=== PATIENT | female | born 1970 | race Caucasian/White ===

== ENCOUNTER 2017-04-17 11:54 | Emergency (ER) | payer BC ==
[2017-04-17] MEDS ORDERED: KETOROLAC 30 MG/ML VIAL IVP ONE (11:59)
[2017-04-17] MEDS ORDERED: 0.9 % SODIUM CHLORIDE 1,000 ML BAG IV ONE (11:59)
[2017-04-17] MEDS ORDERED: PROMETHAZINE HCL 25 MG/ML VIAL IM ONE (11:59)
--- NOTE | 2017-04-17 12:04 | Emergency Department Record ---
History of Present Illness - General Chief Complaint: Abdominal Pain Stated Complaint: ABD PAIN Time Seen by Provider: 04/17/17 11:59 Source: Patient - History of Present Illness Initial Comments: Sudden onset today while having a normal BM of RLQ severe abdominal pain. Patient is inconsolable upon arrival, colicky pain. States she has a history of kidney stones, and has had 3 weeks of mild right sided pain which no one has diagnosed. Just moved here from [place]. 10- moicrograms of fentanyl, 4 zofran, and 4 morphine given en route. SP hysterectomy. MD Complaint: Abdominal pain, Flank pain - Related Data Previous Rx's Medication Instructions Recorded Hydrocodone/Acetaminophen [Brimson 1 each PO TID #14 tablet 04/17/17 5-325 Tablet] Tamsulosin HCl [Flomax] 0.4 mg PO DAILY #7 cap.er.24h 04/17/17 Allergies Allergy/AdvReac Type Severity Reaction Status Date / Time No Known Drug Allergies Allergy Verified 04/17/17 12:09 Review of Systems Reviewed: No additional complaints except as noted below Constitutional: Reports: As per HPI. Denies: Chills, Fever, Malaise, Night sweats, Weakness, Weight change Eyes: Reports: As per HPI. Denies: Eye discharge, Eye pain, Photophobia, Vision change ENT: Reports: As per HPI. Denies: Congestion, Dental pain, Ear pain, Epistaxis , Hearing loss, Throat pain Respiratory: Reports: As per HPI. Denies: Cough, Dyspnea, Hemoptysis, Stridor, Wheezes Cardiovascular: Reports: As per HPI. Denies: Arrhythmia, Chest pain, Dyspnea on exertion, Edema, Murmurs, Orthopnea, Palpitations, Paroxysmal nocturnal dyspnea, Rheumatic Fever, Syncope Endocrine: Reports: As per HPI. Denies: Fatigue, Heat or cold intolerance, Polydipsia, Polyuria Gastrointestinal: Reports: As per HPI. Denies: Abdominal pain, Constipation, Diarrhea, Hematemesis, Hematochezia, Melena, Nausea, Vomiting Genitourinary: Reports: As per HPI. Denies: Abnormal menses, Discharge, Dyspareunia, Dysuria, Frequency, Hematuria, Incontinence, Retention, Urgency Musculoskeletal: Reports: As per HPI. Denies: Arthralgia, Back pain, Gout, Joint swelling, Myalgia, Neck pain Skin: Reports: As per HPI. Denies: Bruising, Change in color, Change in hair/ nails, Lesions, Pruritus, Rash Neurological: Reports: As per HPI. Denies: Abnormal gait, Confusion, Headache, Numbness, Paresthesias, Seizure, Tingling, Tremors, Vertigo, Weakness Psychiatric: Reports: As per HPI. Denies: Anxiety, Auditory hallucinations, Depression, Homicidal thoughts, Suicidal thoughts, Visual hallucinations Hematological/Lymphatic: Reports: As per HPI. Denies: Anemia, Blood Clots, Easy bleeding, Easy bruising, Swollen glands Physical Exam - General General Appearance: Alert, Oriented x3, Cooperative, Severe distress - Head Head exam: Normal inspection - Eye Eye exam: Normal appearance, PERRL, EOMI Pupils: Normal accommodation - ENT ENT exam: Normal exam, Mucous membranes moist, Normal external ear exam, Normal orophraynx, TM's normal bilaterally Ear exam: Normal external inspection. negative: External canal tenderness Nasal Exam: Normal inspection. negative: Discharge, Sinus tenderness Mouth exam: Normal external inspection, Tongue normal Teeth exam: Normal inspection. negative: Dental caries Throat exam: Normal inspection. negative: Tonsillar erythema, Tonsillar exudate - Neck Neck exam: Normal inspection, Full ROM. negative: Tenderness - Respiratory Respiratory exam: Normal lung sounds bilaterally. negative: Respiratory distress - Cardiovascular Cardiovascular Exam: Regular rate, Normal rhythm, Normal heart sounds - GI/Abdominal GI/Abdominal exam: Soft, Normal bowel sounds, Tenderness (RLQ tender to palpation radiating in to right flank tenderness) - Rectal Rectal exam: Deferred - exam: Deferred - Extremities Extremities exam: Normal inspection, Full ROM, Normal capillary refill. negative: Tenderness - Back Back exam: Reports: Normal inspection, CVA tenderness (R), Full ROM. Denies: CVA tenderness (L), Muscle spasm, Rash noted, Tenderness - Neurological Neurological exam: Alert, CN II-XII intact, Normal gait, Oriented X3, Reflexes normal - Psychiatric Psychiatric exam: Normal affect, Normal mood - Skin Skin exam: Dry, Intact, Normal color, Warm Course - Reevaluation(s) Reevaluation #1: Patient is much more comfortable but not painfree. results discussed with patient, all questions answered, patient understands. 04/17/17 13:35 04/17/17 13:38 Reevaluation #2: Patient is comfortable and ready for DC home. Will follow with Dr Reeder 04/17/17 14:28 Medical Decision Making - Data Complexity MDM Data: Labs Ordered and/or Reviewed, X-Ray Ordered and/or Reviewed ( Noncontrast Abd/Pelvis CT: 2 mm right UVJ stone with mild-moderate hydronephrosis. Per rad.) - Lab Data Result diagrams: 04/17/17 12:26 04/17/17 12:26 Disposition Clinical Impression: Kidney stone on right side Disposition: Home, Self-Care Condition: (1) Good Instructions: Kidney Stones (ED) Additional Instructions: Flomax as directed. Brimson as directed IF NEEDED for pain. Dr[facility] a directed. Return if your pain is not controlled at home. Prescriptions: Hydrocodone/Acetaminophen [Brimson 5-325 Tablet] 1 each PO TID #14 tablet Tamsulosin HCl [Flomax] 0.4 mg PO DAILY #7 cap.er.24h Referrals: KANDICE REEDER M.D. [MEDICAL DOCTOR] - Forms: Patient Portal Access Quality - Quality Measures Quality Measures: N/A - Blood Pressure Screening Does Patient Have Any of the Following: No Blood Pressure Classification: Hypertensive Reading Systolic Measurement: 156 Diastolic Measurement: 110 Screening for High Blood Pressure: < Pre-Hypertensive BP, F/U Documented > [ G8950] Pre-Hypertensive Follow-up Interventions: Follow-up with rescreen every year.
[2017-04-17 12:47] LABS: BASO % 0.2 % (0-6); EOS % 0.8 % (0-6); GRAN % 72.2 % (47-80); HEMATOCRIT 43.4 % (35.0-47.0); HEMOGLOBIN 14.3 gm/dl (11.6-16.0); LYMPH % 20.2 % (16-45); MEAN CELL VOLUME 92.3 fl (81-97); MEAN CORPUSCULAR HEMOGLOBIN 30.4 pg (27-33); MEAN CORPUSCULAR HGB CONC 32.9 g/dl (32-36); MEAN PLATELET VOLUME 10.3 fl (7.4-10.4); MONO % 6.6 % (0-9); PLATELET COUNT 195 K/uL (130-400); RED CELL DISTRIBUTION WIDTH 12.8 % (11.5-14.5); WHITE BLOOD COUNT W/O DIFF 8.9 K/uL (4.2-12.2)
[2017-04-17 13:08] LABS: ALBUMIN 4.1 g/dL (4.0-5.0); ALKALINE PHOSPHATASE 80 U/L (35-104); ALT/SGPT 10 U/L (<33); AST/SGOT 12 U/L (10.0-35.0); BLOOD UREA NITROGEN 8 mg/dL (6-20); CREATININE 0.7 mg/dL (0.5-0.9); EST GLOMERULAR FILTRATION RATE > 60 mL/min; GLUCOSE,RANDOM 95 mg/dL (74-109); LIPASE 28 U/L (13-60); TOTAL PROTEIN 6.5 g/dL (6.6-8.7)
[2017-04-17 13:11] LABS: BILIRUBIN,DIRECT < 0.2 mg/dL (0-0.3)
[2017-04-17 13:17] LABS: URINE APPEARANCE CLEAR; URINE BILIRUBIN NEGATIVE (NEGATIVE); URINE BLOOD LARGE (NEGATIVE); URINE COLOR YELLOW; URINE GLUCOSE (UA) NEGATIVE (NEGATIVE); URINE KETONE NEGATIVE (NEGATIVE); URINE LEUKOCYTE ESTERASE NEGATIVE (NEGATIVE); URINE NITRITE NEGATIVE (NEGATIVE); URINE PROTEIN NEGATIVE (NEGATIVE); URINE UROBILINOGEN 0.2 E.U./dL (0.20 - 1.00)
[2017-04-17 13:34] LABS: URINE BACTERIA FEW; URINE EPITHELIAL CELLS 0 - 2 (FEW); URINE WBC 0 - 2 (0-2/hpf)
[2017-04-17] MEDS ORDERED: TAMSULOSIN HCL 0.4 MG CAP.ER.24H PO ONE (13:37)
--- NOTE | 2017-04-18 08:35 | CT SCAN REPORT ---
EXAM: CT OF THE ABDOMEN AND PELVIS HISTORY: FLANK PAIN. TECHNIQUE: CT of the abdomen and pelvis was performed without oral or IV contrast. This limits evaluation of bowel and solid visceral organs. Comparison: None. FINDINGS: Limited evaluation of the lung bases demonstrates a 4 mm nodule in the right middle lobe. This could be followed nonemergently and is likely post inflammatory in nature. Minor scarring in the lung bases bilaterally. Limited evaluation of the liver, spleen, adrenal glands, and pancreas is unremarkable. The gallbladder is present. Nonobstructing 1-2 mm left renal calculus. Mild to moderate right sided hydronephrosis and hydroureter, secondary to a 2 mm right UVJ calculus. No free air or free fluid. Normal appendix. No gross evidence for bowel obstruction. IMPRESSION: 1. MILD TO MODERATE RIGHT SIDED HYDRONEPHROSIS AND HYDROURETER SECONDARY TO A 2 MM RIGHT UVJ CALCULUS. 2. NONOBSTRUCTING LEFT RENAL CALCULUS. 3. SUBCENTIMETER NODULE OF THE RIGHT MIDDLE LOBE COULD BE FOLLOWED NONEMERGENTLY WITH CT CHEST. JOB NUMBER: [id number] MTDD
== END 2017-04-17 14:36 | disposition home or self-care (01) ==
LOC: ER 11:54
DX: N13.2 Hydronephrosis with renal and ureteral calculous obstruction (principal); Z87.442 Personal history of urinary calculi
CPT/HCPCS: 99284 ×2; 96374; 96372; 83690; 85025; 80076; 80048; 81001; 74176; J1885; J2550; J7030

== ENCOUNTER 2017-04-18 12:35 | Emergency (ER) | payer BC ==
[2017-04-18] MEDS ORDERED: ONDANSETRON HCL IV 4 MG/2 ML VIAL IVP ONE (13:34)
[2017-04-18] MEDS ORDERED: KETOROLAC 30 MG/ML VIAL IVP ONE (13:34)
[2017-04-18] MEDS ORDERED: 0.9 % SODIUM CHLORIDE 1,000 ML BAG IV ONE (13:36)
[2017-04-18 13:40] LABS: URINE APPEARANCE CLEAR; URINE BILIRUBIN NEGATIVE (NEGATIVE); URINE BLOOD SMALL (NEGATIVE); URINE COLOR YELLOW; URINE GLUCOSE (UA) NEGATIVE (NEGATIVE); URINE KETONE NEGATIVE (NEGATIVE); URINE LEUKOCYTE ESTERASE NEGATIVE (NEGATIVE); URINE NITRITE NEGATIVE (NEGATIVE); URINE PROTEIN NEGATIVE (NEGATIVE); URINE UROBILINOGEN 0.2 E.U./dL (0.20 - 1.00)
[2017-04-18 13:46] LABS: URINE EPITHELIAL CELLS RARE (FEW); URINE WBC NONE SEEN (0-2/hpf)
--- NOTE | 2017-04-18 14:02 | Emergency Department Record ---
History of Present Illness - General Chief complaint: Flank Pain Stated complaint: KIDNEY STONE PAIN Time Seen by Provider: 04/18/17 13:26 Source: Patient, Old records reviewed Mode of Arrival: Ambulatory Limitations: No limitations - History of Present Illness Initial comments: pt was seen yesterday for kidney stone. she states the norco is making her sick and she is in severe pain. her stone is 2mm and was at the uvj yesterday. she is scheduled to see urologist MD Complaint: Other Onset/Timin -: Hour(s) Location: RLQ Radiation: R flank Severity: Severe Severity scale (1-10): 10 Quality: Sharp Consistency: Constant Improves with: None Worsens with: Bathing Associated Symptoms: Nausea/vomiting - Related Data Previous Rx's Medication Instructions Recorded Hydrocodone/Acetaminophen [Grant 1 each PO TID #14 tablet 04/17/17 5-325 Tablet] Tamsulosin HCl [Flomax] 0.4 mg PO DAILY #7 cap.er.24h 04/17/17 Ondansetron [Zofran Odt] 4 mg PO Q8H #14 tab.rapdis 04/18/17 Tamsulosin HCl [Flomax] 0.4 mg PO DAILY #7 cap.er.24h 04/18/17 Allergies Allergy/AdvReac Type Severity Reaction Status Date / Time No Known Drug Allergies Allergy Verified 04/18/17 12:48 Travel Screening - Travel/Exposure Within Last 30 Days Have you traveled within the last 30 days?: No - Travel/Exposure Within Last Year Have you traveled outside the [place] in the last year?: No - Additonal Travel Details Have you been exposed to anyone with a communicable illness?: No Review of Systems Reviewed: No additional complaints except as noted below Constitutional: Reports: As per HPI. Denies: Chills, Fever, Malaise, Night sweats, Weakness, Weight change Eyes: Reports: As per HPI. Denies: Eye discharge, Eye pain, Photophobia, Vision change ENT: Reports: As per HPI. Denies: Congestion, Dental pain, Ear pain, Epistaxis , Hearing loss, Throat pain Respiratory: Reports: As per HPI. Denies: Cough, Dyspnea, Hemoptysis, Stridor, Wheezes Cardiovascular: Reports: As per HPI. Denies: Arrhythmia, Chest pain, Dyspnea on exertion, Edema, Murmurs, Orthopnea, Palpitations, Paroxysmal nocturnal dyspnea, Rheumatic Fever, Syncope Endocrine: Reports: As per HPI. Denies: Fatigue, Heat or cold intolerance, Polydipsia, Polyuria Gastrointestinal: Reports: As per HPI. Denies: Abdominal pain, Constipation, Diarrhea, Hematemesis, Hematochezia, Melena, Nausea, Vomiting Genitourinary: Reports: As per HPI. Denies: Abnormal menses, Discharge, Dyspareunia, Dysuria, Frequency, Hematuria, Incontinence, Retention, Urgency Musculoskeletal: Reports: As per HPI. Denies: Arthralgia, Back pain, Gout, Joint swelling, Myalgia, Neck pain Skin: Reports: As per HPI. Denies: Bruising, Change in color, Change in hair/ nails, Lesions, Pruritus, Rash Neurological: Reports: As per HPI. Denies: Abnormal gait, Confusion, Headache, Numbness, Paresthesias, Seizure, Tingling, Tremors, Vertigo, Weakness Psychiatric: Reports: As per HPI. Denies: Anxiety, Auditory hallucinations, Depression, Homicidal thoughts, Suicidal thoughts, Visual hallucinations Hematological/Lymphatic: Reports: As per HPI. Denies: Anemia, Blood Clots, Easy bleeding, Easy bruising, Swollen glands Past Medical History - SOCIAL HISTORY Smoking Status: Current every day smoker Alcohol Use: None Drug Use: None - RESPIRATORY Hx Respiratory Disorders: No - CARDIOVASCULAR Hx Cardio Disorders: Yes Hx Hypertension: Yes - NEURO Hx Neuro Disorders: Yes Hx Dizziness: Yes - GI Hx GI Disorders: No - Hx Genitourinary Disorders: Yes Hx Kidney Stones: Yes - ENDOCRINE Hx Endocrine Disorders: No - MUSCULOSKELETAL Hx Musculoskeletal Disorders: No - PSYCH Hx Psych Problems: Yes Hx Anxiety: Yes Hx Depression: Yes - HEMATOLOGY/ONCOLOGY Hx Hematology/Oncology Disorders: No Family Medical History Any Significant Family History?: Yes Hx Cancer: Mother *Cancer Comment: Breast Physical Exam - General General Appearance: Alert, Oriented x3, Cooperative, Mild distress - Head Head exam: Normal inspection - Eye Eye exam: Normal appearance, PERRL, EOMI Pupils: Normal accommodation - ENT ENT exam: Normal exam, Mucous membranes moist, Normal external ear exam, Normal orophraynx, TM's normal bilaterally Ear exam: Normal external inspection. negative: External canal tenderness Nasal Exam: Normal inspection. negative: Discharge, Sinus tenderness Mouth exam: Normal external inspection, Tongue normal Teeth exam: Normal inspection. negative: Dental caries Throat exam: Normal inspection. negative: Tonsillar erythema, Tonsillar exudate - Neck Neck exam: Normal inspection, Full ROM. negative: Tenderness - Respiratory Respiratory exam: Normal lung sounds bilaterally. negative: Respiratory distress - Cardiovascular Cardiovascular Exam: Regular rate, Normal rhythm, Normal heart sounds - GI/Abdominal GI/Abdominal exam: Soft, Normal bowel sounds. negative: Tenderness - Rectal Rectal exam: Deferred - exam: Deferred - Extremities Extremities exam: Normal inspection, Full ROM, Normal capillary refill. negative: Tenderness - Back Back exam: Reports: Normal inspection, Full ROM. Denies: Muscle spasm, Rash noted, Tenderness - Neurological Neurological exam: Alert, CN II-XII intact, Normal gait, Oriented X3 - Psychiatric Psychiatric exam: Normal affect, Normal mood - Skin Skin exam: Dry, Intact, Normal color, Warm Course Vital Signs 04/18/17 12:49 Temperature 98.7 F Pulse Rate 88 Respiratory 20 Rate Blood Pressure 164/90 Pulse Ox 100 Medical Decision Making - Lab Data Lab Results 04/18/17 Range/Units 13:30 Urine Color Yellow Urine Appearance Clear Urine pH 6.0 (5.0-8.0) Ur Specific [place] <= 1.005 (1.002-1.030) Urine Protein Negative (NEGATIVE) Urine Glucose (UA) Negative (NEGATIVE) Urine Ketones Negative (NEGATIVE) Urine Blood Small H (NEGATIVE) Urine Nitrite Negative (NEGATIVE) Urine Bilirubin Negative (NEGATIVE) Urine Urobilinogen 0.2 (0.20 - 1.00) E.U./dL Ur Leukocyte Esterase Negative (NEGATIVE) Urine RBC 3 - 6 (NONE SEEN) Urine WBC None seen (0-2/hpf) Ur Epithelial Cells Rare (FEW) Disposition Disposition: Discharge Clinical Impression: Kidney stone on right side Hydronephrosis Qualifiers: Hydronephrosis type: with ureteral calculous obstruction Qualified Code(s): N13.2 - Hydronephrosis with renal and ureteral calculous obstruction Disposition: Home Health Service Condition: (1) Good Instructions: Kidney Stones (ED), How to Strain Your Urine (ED) Additional Instructions: follow up with dr hearn. push fluids. Prescriptions: Ondansetron [Zofran Odt] 4 mg PO Q8H #14 tab.rapdis Tamsulosin HCl [Flomax] 0.4 mg PO DAILY #7 cap.er.24h Quality - Quality Measures Quality Measures: N/A - Blood Pressure Screening Does Patient Have Any of the Following: No Blood Pressure Classification: Hypertensive Reading Systolic Measurement: 164 Diastolic Measurement: 90 Screening for High Blood Pressure: < First Hypertensive BP, F/U Documented > [ G8950] First Hypertensive Follow-up Interventions: Follow-up with rescreen GT 1 day and LT 4 weeks.
== END 2017-04-18 14:59 | disposition home health service (06) ==
LOC: ER 12:35
DX: N13.2 Hydronephrosis with renal and ureteral calculous obstruction (principal); R11.2 Nausea with vomiting, unspecified; Z87.442 Personal history of urinary calculi
CPT/HCPCS: 81001; 96361; 96374; 96375; 99284; J1885; J2405; J7030

== ENCOUNTER 2017-06-16 12:05 | Emergency (ER) | payer BC ==
--- NOTE | 2017-06-16 12:31 | Emergency Department Record ---
History of Present Illness - General Chief Complaint: Dizziness Stated Complaint: DIZZINESS Time Seen by Provider: 06/16/17 12:27 Source: Patient Mode of Arrival: Ambulatory Limitations: No limitations - History of Present Illness Initial Comments: The patient is here due to feeling intermittent dizziness for 3 days. She states the symptoms come and go and lasts seconds to minutes. There is no BRUNNER, visual changes, but she does feel mildly weak at times. Additionally she has had some back and pelvic cramping and is concerned her kidney stone has returned. She did have a R ureter stone 2 months ago but was told they had passed. Additionally she has had retrosternal sharp CP that lasts seconds a few times yesterday but none today. There has been no CANDIE, SOB, sweating, or nausea. She also denies any CP with exertion. The patient admits to being very anxious and states her told her recently that he has genital herpes and she is concerned she has that also but denies any vaginal rash or lesions. MD Complaint: Dizziness Onset/Timin -: Days(s) Timing: Unsure Description: Lightheadedness, Nausea History of Same: No History of Trauma: No Improves With: Nothing Worsens With: Nothing Associated Symptoms: Denies other symptoms - Allie Coma Scale Eye Response: (4) Open spontaneously Motor Response: (5) Localizes to pain Verbal Response: (5) Oriented [place] Total: 14 - Related Data Home Medications Medication Instructions Recorded Confirmed Last Taken Tamsulosin HCl [Flomax] 0.4 mg PO DAILY 06/16/17 06/16/17 06/14/17 Previous Rx's Medication Instructions Recorded Meclizine HCl [Antivert] 25 mg PO Q8H #20 tablet 06/16/17 Allergies Allergy/AdvReac Type Severity Reaction Status Date / Time acetaminophen [From Vicodin] AdvReac NAUSEA Verified 06/16/17 12:21 codeine AdvReac HYPERSENSIT Verified 06/16/17 12:21 IVITY hydrocodone [From Vicodin] AdvReac NAUSEA Verified 06/16/17 12:21 Travel Screening - Travel/Exposure Within Last 30 Days Have you traveled within the last 30 days?: No - Travel/Exposure Within Last Year Have you traveled outside the [place] in the last year?: No - Additonal Travel Details Have you been exposed to anyone with a communicable illness?: No Review of Systems Constitutional: Denies: Chills, Fever Eyes: Denies: Eye discharge ENT: Denies: Congestion Respiratory: Denies: Cough, Dyspnea Cardiovascular: Denies: Arrhythmia, Dyspnea on exertion Endocrine: Reports: Fatigue Gastrointestinal: Denies: Diarrhea, Vomiting Genitourinary: Denies: Dysuria Musculoskeletal: Denies: Arthralgia Past Medical History - SOCIAL HISTORY Smoking Status: Current every day smoker Alcohol Use: None Drug Use: None - RESPIRATORY Hx Respiratory Disorders: No - CARDIOVASCULAR Hx Cardio Disorders: Yes Hx Hypertension: Yes - NEURO Hx Neuro Disorders: Yes Hx Dizziness: Yes - GI Hx GI Disorders: No - Hx Genitourinary Disorders: Yes Hx Kidney Stones: Yes - ENDOCRINE Hx Endocrine Disorders: No - MUSCULOSKELETAL Hx Musculoskeletal Disorders: No - PSYCH Hx Psych Problems: Yes Hx Anxiety: Yes Hx Depression: Yes - HEMATOLOGY/ONCOLOGY Hx Hematology/Oncology Disorders: No Family Medical History Any Significant Family History?: No Hx Cancer: Mother *Cancer Comment: Breast Physical Exam - General General Appearance: Alert, Oriented x3, Cooperative, No acute distress - Head Head exam: Atraumatic, Normocephalic, Normal inspection - Eye Eye exam: Normal appearance, PERRL - ENT Throat exam: Normal inspection. negative: Tonsillar erythema, Tonsillar exudate - Neck Neck exam: Normal inspection, Full ROM. negative: Tenderness - Respiratory Respiratory exam: Normal lung sounds bilaterally. negative: Respiratory distress - Cardiovascular Cardiovascular Exam: Regular rate, Normal rhythm, Normal heart sounds - GI/Abdominal GI/Abdominal exam: Soft, Normal bowel sounds. negative: Tenderness - Extremities Extremities exam: Normal inspection, Full ROM, Normal capillary refill. negative: Tenderness - Neurological Neurological exam: Alert. negative: Motor sensory deficit Course Vital Signs 06/16/17 12:09 Temperature 98.2 F Pulse Rate 81 Respiratory 18 Rate Blood Pressure 175/111 Pulse Ox 100 - Reevaluation(s) Reevaluation #1: The patient is doing a lot better at this time. Her anxiety is improved and her BP is almost down to her normal level. She denies any Cp, SOB, CANDIE, or Head pain. I did explain to her that the workup is all WNL's. She is to take the antivert and see her PCP next week for recheck. 06/16/17 14:52 Reevaluation #2: 2nd EKG: No change from 1st EKG. 06/16/17 14:54 Reevaluation #3: The patient is doing very well at this time. I strongly doubt any cardiac etiology of the patient's pain due to the fact she has a lack of any cardiac symptoms and has neg lab work. Her EKG does have nonspecific inferior lead changes but I do not feel they are significant. She is to F/U with her PCP for further eval. 06/16/17 14:54 Medical Decision Making - Data Complexity MDM Data: Labs Ordered and/or Reviewed, EKG Ordered and/or Reviewed - Lab Data Result diagrams: 06/16/17 12:56 06/16/17 12:56 - EKG Data -: EKG Interpreted by Me EKG: No Acute Changes (Nonspecific ST changes lead III, and AVF. (No old to compare)) Disposition Disposition: Discharge Clinical Impression: Dizziness Disposition: Home, Self-Care Condition: (2) Stable Instructions: Dizziness (ED) Additional Instructions: Please continue your regular medicines and see your PCP next week for recheck. Take the Antivert as directed. Please return to the ER for any worsening symptoms, pain, trouble breathing or fever. Prescriptions: Meclizine HCl [Antivert] 25 mg PO Q8H #20 tablet Forms: Patient Portal Access Time of Disposition: 14:57 Quality - Quality Measures Quality Measures: N/A - Blood Pressure Screening View Details: Yes Does Patient Have Any of the Following: No, Active Dx of HTN Blood Pressure Classification: Hypertensive Reading Systolic Measurement: 133 Diastolic Measurement: 103 Screening for High Blood Pressure: Patient Exclusion, Hx of HTN [G9744]
[2017-06-16] MEDS ORDERED: LORAZEPAM 2 MG/ML VIAL IV ONE (12:43)
[2017-06-16 13:12] LABS: BASO % 0.5 % (0-6); GRAN % 56.2 % (47-80); HEMATOCRIT 49.4 % (35.0-47.0); HEMOGLOBIN 16.6 gm/dl (11.6-16.0); LYMPH % 36.5 % (16-45); MEAN CELL VOLUME 91.8 fl (81-97); MEAN CORPUSCULAR HGB CONC 33.6 g/dl (32-36); MEAN PLATELET VOLUME 10.5 fl (7.4-10.4); MONO % 5.8 % (0-9); PLATELET COUNT 221 K/uL (130-400); RED BLOOD COUNT 5.38 M/uL (3.80-5.40); RED CELL DISTRIBUTION WIDTH 13.4 % (11.5-14.5); URINE APPEARANCE CLEAR; URINE BILIRUBIN NEGATIVE (NEGATIVE); URINE BLOOD TRACE-I (NEGATIVE); URINE COLOR YELLOW; URINE GLUCOSE (UA) NEGATIVE (NEGATIVE); URINE KETONE NEGATIVE (NEGATIVE); URINE LEUKOCYTE ESTERASE NEGATIVE (NEGATIVE); URINE NITRITE NEGATIVE (NEGATIVE); URINE PROTEIN NEGATIVE (NEGATIVE); URINE UROBILINOGEN 0.2 E.U./dL (0.20 - 1.00); WHITE BLOOD COUNT W/O DIFF 7.9 K/uL (4.2-12.2)
[2017-06-16 13:16] LABS: MEAN CORPUSCULAR HEMOGLOBIN 30.8 pg (27-33)
[2017-06-16 13:22] LABS: URINE EPITHELIAL CELLS 0 - 2 (FEW); URINE WBC 0 - 2 (0-2/hpf)
[2017-06-16 13:25] LABS: BLOOD UREA NITROGEN 8 mg/dL (6-20); CREATININE 0.6 mg/dL (0.5-0.9); EST GLOMERULAR FILTRATION RATE > 60 mL/min
[2017-06-16 13:28] LABS: GLUCOSE,RANDOM 79 mg/dL (74-109)
[2017-06-16 13:31] LABS: CREATINE PHOSPHOKINASE 91 U/L (26-192)
[2017-06-16 13:32] LABS: CKMB 1.2 ng/mL (<3.77)
[2017-06-16] MEDS ORDERED: MECLIZINE 25 MG TABLET PO ONE (14:03)
== END 2017-06-16 15:14 | disposition home or self-care (01) ==
LOC: ER 12:05
DX: R42 Dizziness and giddiness (principal); R07.89 Other chest pain; R11.0 Nausea; R53.1 Weakness; I10 Essential (primary) hypertension; F17.210 Nicotine dependence, cigarettes, uncomplicated
CPT/HCPCS: 99284 ×2; 96374; 82550; 85025; 82553; 80048; 81001; 84484; 93005; 93010; J2060